=== PATIENT | female | born 1980 | race Hispanic/Latino ===

== ENCOUNTER 2023-07-07 12:26 | Emergency (ER) | payer SELFPAY ==
[2023-07-07 13:16] LABS: Absolute Eosinophils 0.2 K/uL (0-0.5); Absolute Lymphocytes (CBC) 2.7 K/uL (0.7-4.9); Absolute Monocytes 0.5 K/uL (0.1-1.3); Absolute Neutrophil 5.6 K/uL (1.8-8.0); Basophils % 0.6 % (0-1.3); Eosinophils % 2.4 % (0-4.4); Hematocrit 40.7 % (36.0-45.0); Hemoglobin 14.2 g/dL (12.0-15.0); MCHC 34.8 g/dL (32.0-36.0); MCV 86.1 fL (80-100); MPV 9.4 fL (7.6-11.3); Monocytes % 5.2 % (3.3-12.3); Neutrophils % 61.8 % (41.7-73.7); Platelets 197 thou/uL (152-406); RBC Red Blood Cell Count 4.73 M/uL (3.86-4.86); Red Cell Distribution Width 13.6 % (12.1-15.2)
[2023-07-07 13:19] LABS: Specific Gravity 1.005 (1.005-1.030)
[2023-07-07 13:54] LABS: Anion Gap 9.5 mEq/L (5.0-15.0); Potassium 3.5 mEq/L (3.5-5.1)
--- NOTE | 2023-07-07 13:58 | RAD REPORT ---
EXAM DESCRIPTION: US - Transvaginal OB - 07/07/2023 1:41 pm CLINICAL HISTORY: VAGINAL BLEEDING COMPARISON: <Comparisons> FINDINGS: A single gestational sac is present. No definitive yolk sac or pole can be identifie d with confidence. Vague soft tissue structure is present in sac. The maternal adnexa and ovaries are within normal limits. Normal Doppler blood flow was demonstrated to both ovaries. IMPRESSION: Single gestational sac is present in the uterus. No definitive IUP is seen although ther e is mild vague soft tissue present. Recommend serial HCG follow-up as well as repeat pelvic sonogram in 7-10 days.
--- NOTE | 2023-07-07 14:50 | ER ---
Nurse's Notes [facility] Name: Grecia Dc Age: 43 yrs Sex: Female : 1980 Arrival Date: 07/07/2023 Time: 12:26 Bed 7 Private MD: Diagnosis: Threatened Presentation: 07/06 12:43 Chief complaint: Patient states: she is approx 6 weeks with reported LMP ap3 04/24/2023. patient states she started having vaginal bleeding yesterday that increased today. Coronavirus screen: At this time, the client does not indicate any symptoms associated with coronavirus-19. Ebola Screen: No symptoms or risks identified at this time. Initial Sepsis Screen: Does the patient meet any 2 criteria? No. Patient's initial sepsis screen is negative. Does the patient have a suspected source of infection? No. Patient's initial sepsis screen is negative. Risk Assessment: Do you want to hurt yourself or someone else? Patient reports no desire to harm self or others. Onset of symptoms was July 06, 2023. 12:43 Method Of Arrival: Ambulatory ap3 12:43 Acuity: DESHAUN 3 ap3 Triage Assessment: 12:45 General: Appears in no apparent distress. Behavior is calm, cooperative, appropriate ap3 for age. Pain: Denies pain. Neuro: Level of Consciousness is awake, alert, obeys commands. Cardiovascular: Patient's skin is warm and dry. Respiratory: Airway is patent Respiratory effort is even, unlabored, Respiratory pattern is regular, symmetrical. : Reports vaginal bleeding that is light flow. 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 - Social history:: Smoking status: Patient denies any tobacco usage or history of. Screenin:45 [facility] ED Fall Risk Assessment (Adult) History of falling in the last 3 months, bp including since admission No falls in past 3 months (0 pts). Abuse screen: Denies threats or abuse. Denies injuries from another. Nutritional screening: No deficits noted. Tuberculosis screening: No symptoms or risk factors identified. Assessment: 12:45 Obstetrical Assessment: General assessment: awake and alert, skin warm and dry, bp respirations even and unlabored. General: Appears in no apparent distress. comfortable, Behavior is calm, cooperative, appropriate for age. 14:00 Reassessment: Patient appears in no apparent distress at this time. Patient is alert, bp oriented x 3, equal unlabored respirations, skin warm/dry/pink. Vital Signs: 12:43 BP 142 / 76; Pulse 72; Resp 17; Temp 98.3; Pulse Ox 98% ; Weight 76.2 kg; ap3 15:00 BP 109 / 66; Pulse 68; Resp 16; Temp 98; Pulse Ox 99% ; bp ED Course: 12:28 Patient arrived in ED. ra3 12:29 Jeremy Mtz DO is Attending Physician. ms3 12:34 Morgan Dempsey, RN is Primary Nurse. bp 12:45 Triage completed. ap3 12:45 Patient has correct armband on for positive identification. bp 12:46 Arm band placed on right wrist. ap3 12:55 Quantitative Hcg Sent. bp 12:55 Test, Urine Sent. bp 12:55 CBC with Diff Sent. bp 12:55 Basic Metabolic Panel Sent. bp 12:55 Abo/rh Typing Sent. bp 12:55 Inserted saline lock: 22 gauge in right wrist, using aseptic technique. Blood collected.bp 13:43 US Transvaginal Ob In Process Unspecified. EDMS 14:00 Provided Education on: N/A. bp 15:01 No provider procedures requiring assistance completed. IV discontinued, intact, bp bleeding controlled, No redness/swelling at site. Pressure dressing applied. Administered Medications: No medications were administered Medication: 14:00 VIS not applicable for this client. bp Outcome: 14:49 Discharge ordered by . ms3 15:01 Discharged to home ambulatory, with family, bp 15:01 Condition: stable 15:01 Discharge instructions given to patient, family, Instructed on discharge instructions, follow up and referral plans. Demonstrated understanding of instructions, follow-up care, 15:01 Patient left the ED. bp Signatures: Dispatcher [employer] EDMS Morgan Dempsey, RN RN Anne Hernandez RN RN ap3 Jeremy Mtz DO DO ms3 Mireille Springer ra3
--- NOTE | 2023-07-07 14:50 | EDPHYS ---
Physician Documentation [facility] Name: Grecia Dc Age: 43 yrs Sex: Female : 1980 Arrival Date: 07/07/2023 Time: 12:26 Bed 7 Private MD: ED Physician Jeremy Mtz HPI: 07/06 13:18 This 43 yrs old Female presents to ER via Ambulatory with complaints of ms3 Vaginal Bleeding, + Preg <12wks. 13:18 43-year-old female with past medical history of gestational diabetes [place] [facility] [place] vaginal bleeding. Patient was seen yesterday by [facility] obstetrics and was told if her bleeding increase she needs to go to the emergency department. Patient denies going through pads; however, patient states when urinating she is bleeding more. Patient denies abdominal pain at this time. Patient states she has intermittent cramping. Patient states her last menstrual period was April 24, 2023 and she is -0-1-2. 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 - Social history:: Smoking status: Patient denies any tobacco usage or history of. ROS: 13:18 Constitutional: Negative for fever, and chills. Neck: Negative for injury, pain, and ms3 swelling, Cardiovascular: Negative for chest pain, and palpitations. Respiratory: Negative for shortness of breath, cough, wheezing, and pleuritic chest pain, Abdomen/GI: Negative for abdominal pain, nausea, vomiting, diarrhea, and constipation, 13:18 MS/Extremity: Negative for injury and deformity, Skin: Negative for injury, rash, and discoloration, 13:18 : Positive for vaginal bleeding, 13:18 All other systems are negative, Exam: 13:18 Constitutional: This is a well developed, well nourished patient who is awake, alert, ms3 and in no acute distress. Head/Face: Normocephalic, atraumatic. Neck: Trachea midline, no cervical lymphadenopathy. Supple, full range of motion without nuchal rigidity, or vertebral point tenderness. No Meningismus. Chest/axilla: Normal chest wall appearance and motion. Nontender with no deformity. Cardiovascular: Regular rate and rhythm with a normal S1 and S2. No gallops, murmurs, or rubs. Normal PMI, no JVD. No pulse deficits. Respiratory: Lungs have equal breath sounds bilaterally, clear to auscultation and percussion. No rales, rhonchi or wheezes noted. No increased work of breathing, no retractions or nasal flaring. Abdomen/GI: Soft, non-tender, with normal bowel sounds. No distension or tympany. No guarding or rebound. No evidence of tenderness throughout. Skin: Warm, dry with normal turgor. Normal color with no rashes, no lesions, and no evidence of cellulitis. Vital Signs: 12:43 BP 142 / 76; Pulse 72; Resp 17; Temp 98.3; Pulse Ox 98% ; Weight 76.2 kg; ap3 15:00 BP 109 / 66; Pulse 68; Resp 16; Temp 98; Pulse Ox 99% ; bp MDM: 12:41 Patient medically screened. ms3 13:18 Differential diagnosis: threatened Ab, complete Ab, missed Ab, ectopic . ms3 14:49 Data reviewed: vital signs, nurses notes, lab test result(s), radiologic studies, and ms3 as a result, I will discharge patient. Historians other than the Patient: Spouse/Significant Other: Patient's . Counseling: I had a detailed discussion with the patient and/or guardian regarding the historical points, exam findings, and any diagnostic results supporting the discharge/admit diagnosis, lab results, radiology results, the need for outpatient follow up, to return to the emergency department if symptoms worsen or persist or if there are any questions or concerns that arise at home. Special discussion: I discussed with the patient/guardian in detail that at this point there is no indication for admission to the hospital. It is understood, however, that if the symptoms persist or worsen the patient needs to return immediately for re-evaluation. ED course: Discussed labs and ultrasound findings with the patient. Patient to follow-up with [facility] on Monday for repeat beta hCG and ultrasound. All questions were answered. Return precautions discussed include worsening symptoms, or any other concerns. On reevaluation patient is alert and oriented x 4, no apparent distress, nontoxic-appearing, ambulatory in the emergency department, speaking full sentences. 07/06 12:42 Order name: Abo/rh Typing; Complete Time: 14:18 ms3 07/06 12:42 Order name: Basic Metabolic Panel; Complete Time: 14:11 ms3 07/06 12:42 Order name: CBC with Diff; Complete Time: 14:11 ms3 07/06 12:42 Order name: Test, Urine; Complete Time: 13:25 ms3 07/06 12:42 Order name: Quantitative Hcg; Complete Time: 14:11 ms3 07/06 12:42 Order name: US Transvaginal Ob; Complete Time: 14:11 ms3 07/06 12:42 Order name: IV Saline Lock; Complete Time: 12:55 ms3 07/06 12:42 Order name: Labs collected and sent; Complete Time: 12:55 ms3 07/06 12:42 Order name: NPO; Complete Time: 12:47 ms3 Administered Medications: No medications were administered Disposition Summary: 07/07/23 14:49 Discharge Ordered Notes: Location: Home ms3 Condition: Stable ms3 Diagnosis - Threatened ms3 Followup: ms3 - With: Private Physician - When: 2 - 3 days - Reason: Recheck today's complaints Discharge Instructions: - Discharge Summary Sheet ms3 - Threatened Miscarriage ms3 Forms: - Medication Reconciliation Form ms3 - Thank You Letter ms3 - Antibiotic Education ms3 - Prescription Opioid Use ms3 - Patient Portal Instructions ms3 - Leadership Thank You Letter ms3 Signatures: Dispatcher [employer] Anne Valiente RN RN ap3 Jeremy Mtz DO DO ms3
[2023-07-07 15:27] VITALS: BP 109/66; TEMP 98; O2SAT 99
== END 2023-07-07 15:01 | disposition home or self-care (01) ==
LOC: ER 12:26
DX: O20.0 Threatened abortion (principal)
CPT/HCPCS: 36415; 76817; 80048; 81025; 84702; 85025; 86900; 86901; 99284

== ENCOUNTER 2023-07-07 20:21 | Emergency (ER) | payer SELFPAY ==
--- OUTSIDE RECORDS SUMMARY | 2023-07-07 20:25 | XMS REPORT | Continuity of Care Document ---
Author Name Unknown Address [address] [facility] [place] [address] [facility] thconnect Address [address] 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 Name Role Phone Fernanda Andrade Primary Care Physicia n FERNANDA PERRY Attending Clinician Unavail able Fernanda Andrade Attending Clinician + Ultrasound, Ang-Mfm Attending Clinician Unavaila ble Doctor Unassigned, Marcus Attending Clinician U navailable Payers Payer Name Policy Type Policy Number Effective Date Expirati on Date Source [facility] [employer] F[employer] [id number] 2023 00:00:00 Problems Condition Name Condition Details Condition Category Status Onset Date Resolution Date Last Treatment Date Treating Clinician Comments Source UTI in UTI in Disease Active 06-08 00:00: 00 Overview: Formattin g of this note might be different from the original. Pending eliezer [facility] Pregestati onal diabetes mellitus, modified White class B Pregestati onal diabetes mellitus, modified White class B Disease Active 06-07 00:00: 00 [facility] Supervisio n of high-risk of elderly multigravi da Supervisio n of high-risk of elderly multigravi da Disease Active - 00:00: 00 [facility] History of section History of section Disease Active 06-06 00:00: 00 Overview: Formattin g of this note might be different from the original. x2 [facility] History of miscarriag e History of miscarriag e Disease Active 06-06 00:00: 00 [facility] History of gestationa l diabetes History of gestationa l diabetes Disease Active 06-06 00:00: 00 Overview: Formattin g of this note might be different from the original. Was on metformin last [facility] Multiparit y Multiparit y Disease Active 06-06 00:00: 00 [facility] Obesity in Obesity in Disease Active 04-17 00:00: 00 [facility] BMI 28.0-28.9, adult BMI 28.0-28.9, adult Disease Active 04-17 00:00: 00 [facility] Well woman exam (no gynecologi fatou exam) Well woman exam (no gynecologi fatou exam) Disease Active 2015-04 00:00: 00 [facility] Depo-Prove ra contracept arash status Depo-Prove ra contracept arash status Disease Active 2015-04 00:00: 00 [facility] Allergies, Adverse Reactions, Alerts Allergy Name Allergy Type Status Severity Reaction(s) Onset Date Inactive Date Treating Clinician Comments Source NO KNOWN ALLERGIE S Drug Class Active [facility] Social History Social Habit Start Date Stop Date Quantity Comments Source ASSERTION 2023-06-03 00:00:00 [facility] Tobacco use and exposure 2023-06-06 00:00:00 2023-06-06 00:00:00 Smokeless tobacco non-user [facility] Alcohol intake 2023-06-06 00:00:00 2023-06-06 00:00:00 0 /d [facility] History of Social function 2023-06-06 00:00:00 2023-06-06 00:00:00 [facility] Sex Assigned At 1980 00:00:00 1980 00:00:00 [facility] Smoking Status Start Date Stop Date Source Never smoked tobacco [facility] Medications Ordered Medication Name Filled Medication Name Start Date Stop Date Current Medication? Ordering Clinician Indication Dosage Frequency Signature (SIG) Comments Components Source Nitrofurant oin&Nit. Macrocryst (MACROBID) 100 mg capsule 06-08 00:00: 00 06-19 04:59 :00 Yes [id number] 100mg Take 1 capsule by mouth 2 (two) times daily for 10 days. [facility] Nitrofurant oin&Nit. Macrocryst (MACROBID) 100 mg capsule 06-08 00:00: 00 06-19 04:59 :00 Yes [id number] 100mg Take 1 capsule by mouth 2 (two) times daily for 10 days. [facility] Nitrofurant oin&Nit. Macrocryst (MACROBID) 100 mg capsule 06-08 00:00: 00 06-19 04:59 :00 Yes [id number] 100mg Take 1 capsule by mouth 2 (two) times daily for 10 days. [facility] Blood-Gluco se Meter (FREESTYLE LITE METER) Kit 06-07 00:00: 00 Yes [id number] Check blood glucose 4x daily [facility] lancets (FREESTYLE LANCETS) 28 gauge [facility] 06-07 00:00: 00 Yes [id number] Check glucose 4x daily [facility] blood sugar diagnostic (FREESTYLE LITE STRIPS) strip 06-07 00:00: 00 Yes [id number] Check blood glucose 4x daily [facility] Blood-Gluco se Meter (FREESTYLE LITE METER) Kit 06-07 00:00: 00 Yes [id number] Check blood glucose 4x daily [facility] lancets (FREESTYLE LANCETS) 28 gauge Misc 06-07 00:00: 00 Yes [id number] Check glucose 4x daily [facility] blood sugar diagnostic (FREESTYLE LITE STRIPS) strip 06-07 00:00: 00 Yes [id number] Check blood glucose 4x daily [facility] Blood-Gluco se Meter (FREESTYLE LITE METER) Kit 06-07 00:00: 00 Yes [id number] Check blood glucose 4x daily [facility] lancets (FREESTYLE LANCETS) 28 gauge Mis 06-07 00:00: 00 Yes [id number] Check glucose 4x daily [facility] blood sugar diagnostic (FREESTYLE LITE STRIPS) strip 06-07 00:00: 00 Yes [id number] Check blood glucose 4x daily [facility] Blood-Gluco se Meter (FREESTYLE LITE METER) Kit 06-07 00:00: 00 Yes [id number] Check blood glucose 4x daily [facility] lancets (FREESTYLE LANCETS) 28 gauge [facility] 06-07 00:00: 00 Yes [id number] Check glucose 4x daily [facility] blood sugar diagnostic (FREESTYLE LITE STRIPS) strip 06-07 00:00: 00 Yes [id number] Check blood glucose 4x daily [facility] Blood-Gluco se Meter (FREESTYLE LITE METER) Kit 06-07 00:00: 00 Yes [id number] Check blood glucose 4x daily [facility] lancets (FREESTYLE LANCETS) 28 gauge [facility] 06-07 00:00: 00 Yes [id number] Check glucose 4x daily [facility] blood sugar diagnostic (FREESTYLE LITE STRIPS) strip 06-07 00:00: 00 Yes [id number] Check blood glucose 4x daily [facility] Blood-Gluco se Meter (FREESTYLE LITE METER) Kit 06-07 00:00: 00 Yes [id number] Check blood glucose 4x daily [facility] lancets (FREESTYLE LANCETS) 28 gauge [facility] 06-07 00:00: 00 Yes [id number] Check glucose 4x daily [facility] blood sugar diagnostic (FREESTYLE LITE STRIPS) strip 06-07 00:00: 00 Yes [id number] Check blood glucose 4x daily [facility] Blood-Gluco se Meter (FREESTYLE LITE METER) Kit 06-07 00:00: 00 Yes [id number] Check blood glucose 4x daily [facility] lancets (FREESTYLE LANCETS) 28 gauge [facility] 06-07 00:00: 00 Yes [id number] Check glucose 4x daily [facility] blood sugar diagnostic (FREESTYLE LITE STRIPS) strip 06-07 00:00: 00 Yes [id number] Check blood glucose 4x daily [facility] Blood-Gluco se Meter (FREESTYLE LITE METER) Kit 06-07 00:00: 00 Yes [id number] Check blood glucose 4x daily [facility] lancets (FREESTYLE LANCETS) 28 gauge [facility] 06-07 00:00: 00 Yes [id number] Check glucose 4x daily [facility] blood sugar diagnostic (FREESTYLE LITE STRIPS) strip 06-07 00:00: 00 Yes [id number] Check blood glucose 4x daily [facility] Blood-Gluco se Meter (FREESTYLE LITE METER) Kit 06-07 00:00: 00 Yes [id number] Check blood glucose 4x daily [facility] lancets (FREESTYLE LANCETS) 28 gauge [facility] 06-07 00:00: 00 Yes [id number] Check glucose 4x daily [facility] blood sugar diagnostic (FREESTYLE LITE STRIPS) strip 06-07 00:00: 00 Yes [id number] Check blood glucose 4x daily [facility] Blood-Gluco se Meter (FREESTYLE LITE METER) Kit 06-07 00:00: 00 Yes [id number] Check blood glucose 4x daily [facility] lancets (FREESTYLE LANCETS) 28 gauge [facility] 06-07 00:00: 00 Yes [id number] Check glucose 4x daily [facility] blood sugar diagnostic (FREESTYLE LITE STRIPS) strip 06-07 00:00: 00 Yes [id number] Check blood glucose 4x daily [facility] metformin HCl (METFORMIN ORAL) 06-06 13:45: 56 06-06 00:00 :00 No Take by mouth. [facility] flq05-ejyz- folic acid 29 mg iron- 1 mg per tablet 06-06 00:00: 00 Yes [id number] 1{tbl} Take 1 tablet by mouth daily. [facility] wxc87-dczs- folic acid 29 mg iron- 1 mg per tablet 06-06 00:00: 00 Yes [id number] 1{tbl} Take 1 tablet by mouth daily. [facility] lgl69-dvqv- folic acid 29 mg iron- 1 mg per tablet 06-06 00:00: 00 Yes [id number] 1{tbl} Take 1 tablet by mouth daily. [facility] jnw15-daes- folic acid 29 mg iron- 1 mg per tablet 06-06 00:00: 00 Yes [id number] 1{tbl} Take 1 tablet by mouth daily. [facility] rlq45-ywso- folic acid 29 mg iron- 1 mg per tablet 06-06 00:00: 00 Yes [id number] 1{tbl} Take 1 tablet by mouth daily. [facility] bjw58-nwll- folic acid 29 mg iron- 1 mg per tablet 06-06 00:00: 00 Yes [id number] 1{tbl} Take 1 tablet by mouth daily. [facility] wda20-apwr- folic acid 29 mg iron- 1 mg per tablet 06-06 00:00: 00 Yes [id number] 1{tbl} Take 1 tablet by mouth daily. [facility] jpj70-ljbm- folic acid 29 mg iron- 1 mg per tablet 06-06 00:00: 00 Yes [id number] 1{tbl} Take 1 tablet by mouth daily. [facility] rqs61-sbol- folic acid 29 mg iron- 1 mg per tablet 06-06 00:00: 00 Yes [id number] 1{tbl} Take 1 tablet by mouth daily. [facility] dqf55-ldep- folic acid 29 mg iron- 1 mg per tablet 06-06 00:00: 00 Yes [id number] 1{tbl} Take 1 tablet by mouth daily. [facility] klj42-eheu- folic acid 29 mg iron- 1 mg per tablet 06-06 00:00: 00 Yes [id number] 1{tbl} Take 1 tablet by mouth daily. [facility] metformin HCl (METFORMIN ORAL) - 15:05: 54 Yes Take by mouth. [facility] Immunizations Ordered Immunization Name Filled Immunization Name Date Status Comments Source Influenza Virus Vaccine Quad IM 3+ YRS Unknown Completed [facility] PPD (TB) Unknown Completed [facility] TDAP Unknown Completed [facility] TD, NOS Unknown Completed [facility] Influenza Virus Vaccine Quad IM 3+ YRS Unknown Completed [facility] PPD (TB) Unknown Completed [facility] TDAP Unknown Completed [facility] TD, NOS Unknown Completed [facility] Influenza Virus Vaccine Quad IM 3+ YRS Unknown Completed [facility] PPD (TB) Unknown Completed [facility] TDAP Unknown Completed [facility] TD, NOS Unknown Completed [facility] Influenza Virus Vaccine Quad IM 3+ YRS Unknown Completed [facility] PPD (TB) Unknown Completed [facility] TDAP Unknown Completed [facility] TD, NOS Unknown Completed [facility] Influenza Virus Vaccine Quad IM 3+ YRS Unknown Completed [facility] PPD (TB) Unknown Completed [facility] TDAP Unknown Completed [facility] TD, NOS Unknown Completed [facility] TD, NOS Unknown Completed [facility] Influenza Virus Vaccine Quad IM 3+ YRS Unknown Completed [facility] PPD (TB) Unknown Completed [facility] TDAP Unknown Completed [facility] Influenza Virus Vaccine Quad IM 3+ YRS Unknown Completed [facility] PPD (TB) Unknown Completed [facility] TDAP Unknown Completed [facility] TD, NOS Unknown Completed [facility] Influenza Virus Vaccine Quad IM 3+ YRS Unknown Completed [facility] PPD (TB) Unknown Completed [facility] TDAP Unknown Completed [facility] TD, NOS Unknown Completed [facility] Influenza Virus Vaccine Quad IM 3+ YRS Unknown Completed [facility] PPD (TB) Unknown Completed [facility] TDAP Unknown Completed [facility] TD, NOS Unknown Completed [facility] Influenza Virus Vaccine Quad IM 3+ YRS Unknown Completed [facility] PPD (TB) Unknown Completed [facility] TDAP Unknown Completed [facility] TD, NOS Unknown Completed [facility] Influenza Virus Vaccine Quad IM 3+ YRS Unknown Completed [facility] PPD (TB) Unknown Completed [facility] TDAP Unknown Completed [facility] TD, NOS Unknown Completed [facility] Influenza Virus Vaccine Quad IM 3+ YRS Unknown Completed [facility] PPD (TB) Unknown Completed [facility] TDAP Unknown Completed [facility] TD, NOS Unknown Completed [facility] Vital Signs Vital Name Observation Time Observation Value Comments S ource Systolic blood pressure 2023-07-06 20:15:00 140 mm[Hg] [facility] Diastolic blood pressure 2023-07-06 20:15:00 80 mm[Hg] [facility] Heart rate 2023-07-06 20:09:00 77 /min [facility] Body temperature 2023-07-06 20:09:00 36.67 Pratibha [facility] Respiratory rate 2023-07-06 20:09:00 18 /min [facility] Body height 2023-07-06 20:09:00 154.9 cm [facility] Body weight 2023-07-06 20:09:00 75.297 kg [facility] BMI 2023-07-06 20:09:00 31.37 kg/m2 [facility] Systolic blood pressure 2023-07-04 12:47:00 119 mm[Hg] [facility] Diastolic blood pressure 2023-07-04 12:47:00 70 mm[Hg] [facility] Heart rate 2023-07-04 12:47:00 72 /min [facility] Body temperature 2023-07-04 12:47:00 36.33 Pratibha [facility] Respiratory rate 2023-07-04 12:47:00 17 /min [facility] Body height 2023-07-04 12:47:00 154.9 cm [facility] Body weight 2023-07-04 12:47:00 76.295 kg [facility] BMI 2023-07-04 12:47:00 31.78 kg/m2 [facility] Systolic blood pressure 2023-06-06 19:22:00 133 mm[Hg] [place] [facility] Diastolic blood pressure 2023-06-06 19:22:00 81 mm[Hg] [place] [facility] Heart rate 2023-06-06 19:22:00 85 /min [facility] Body temperature 2023-06-06 19:22:00 36.11 Pratibha [facility] Respiratory rate 2023-06-06 19:22:00 17 /min [facility] Body height 2023-06-06 19:22:00 154.9 cm [facility] Body weight 2023-06-06 19:22:00 75.751 kg [facility] BMI 2023-06-06 19:22:00 31.55 kg/m2 [facility] Procedures Procedure Date / Time Performed Performing Clinicia n Source POCT URINALYSIS 2023-07-04 13:27:00 Fernanda Perry [facility] FIRST TRIMESTER ULTRASOUND 2023-07-03 14:40:00 Fernanda Perry [facility] POCT URINALYSIS W/O SPECIFIC GRAVITY 2023-06-06 19:28:00 Fernanda Perry [facility] POCT TEST 2023-06-06 19:27:00 Hardeep Perry [facility] ASSIGNMENT OF BENEFITS 2023-06-06 15:32:13 Docto r Unassigned, Marcus [facility] Encounters Start Date/Time End Date/Time Encounter Type Admission Type Attending [facility] Care Facility Care Department Encounter ID Source 2023-10-09 10:00:00 2023-10-09 10:00:00 Outpatient P [facility] [id number] [facility] 2023-07-18 09:30:00 2023-07-18 09:30:00 Outpatient P [facility] [id number] [facility] 2023-07-10 08:15:00 2023-07-10 08:15:00 Outpatient R FERNANDA PERRY [facility] [id number] [facility] 2023-07-06 15:15:00 2023-07-06 15:59:26 Outpatient R FERNANDA PERRY [facility] [id number] [facility] 2023-07-06 15:15:00 2023-07-06 15:59:26 Routine Visit Fernanda Perry [employer] [employer] [facility] .840.114 350.1.13.10 4.2.7.2.686 [id number] [facility] 2023-07-04 07:45:00 2023-07-04 08:32:30 Outpatient R FERNANDA PERRY [facility] [id number] [facility] 2023-07-04 07:45:00 2023-07-04 08:32:30 Routine Visit Fernanda Perry [facility] [employer] [facility] .840.114 350.1.13.10 4.2.7.2.686 [id number] [facility] 2023-07-03 08:00:00 2023-07-03 08:35:01 [employer] Manager Visit Ultrasound, Ang-Mfm Fernanda Perry [facility] [employer] [facility] .840.114 350.1.13.10 4.2.7.2.686 [id number] [facility] 2023-07-03 08:00:00 2023-07-03 08:35:01 Outpatient P FERNANDA PERRY [facility] [id number] [facility] 2023-06-09 00:00:00 2023-06-09 00:00:00 Telephone Fernanda Perry [facility] [employer] [facility] 1.2.840.114 350.1.13.10 4.2.7.2.686 [id number] [facility] 2023-06-07 00:00:00 2023-06-07 00:00:00 Telephone Fernanda Perry [facility] [employer] [facility] 1.2.840.114 350.1.13.10 4.2.7.2.686 [id number] [facility] 2023-06-07 00:00:00 2023-06-07 00:00:00 Telephone Fernanda Perry [facility] [employer] [facility]ILD [facility] 1.2840.114 350.1.13.10 4.2.7.2.686 [id number] [facility] 2023-06-06 13:45:00 2023-06-06 14:36:55 Outpatient R DYLONSERGEY FERNANDA [facility] [id number] [facility] 2023-06-06 13:45:00 2023-06-06 14:36:55 Initial Visit DylonFernanda albert Brad [facility] [employer] [facility] 1.2840.114 350.1.13.10 4.2.7.2.686 [id number] [facility] 2023-06-06 00:00:00 2023-06-06 00:00:00 Orders Only Doctor Unassigned, Marcus [facility] 1.2840.114 350.1.13.10 4.2.7.2.686 [id number] [facility] Results Test Description Test Time Test Comments Results Result Co mments Source [facility] w/o Specific [id number] 19:28:00* Test Item Value Reference Range Interpretation Comme nts POCT PH U (test code = 3254) 6 mg/dl 5-8 POCT U LEUK EST (test code = 3263) neg Negative - Negative POCT U NIT (test code = 3262) neg Negative - Negati ve POCT U PROT (test code = 3259) neg Negative - Negat arash POCT U GLU (test code = 3256) 250 Negative - Negati ve POCT U KETONE (test code = 3258) neg Negative - Neg ative POCT U BLD (test code = 3257) neg Negative - Negati ve [facility] [id number] 19:27:00* Test Item Value Reference Range Interpretation Comme nts POCT PREG (test code = 1605) Positive On board controls acceptable with C Line (test code = 3574) Yes POCT PREG LOT # (test code = 3575) POCT PREG TEST DATE ( test code = 3576) [facility] Notes Date/Time Note Provider Source 2023-06-12 09:32:29 uIN6EqHOzZjX04p5zPZB EN60MnKilz /GAgAI6O+Duo0jgnjiaTH9Cts8GKIs 9oX22243-50-49R14:32:29Formatt ing of this note might be different from the original.Called patient, notified patient positive for UTI. Educated patient on antibiotics, good perineal hygiene, and increasing fluids. Pt verbalized understanding.LOUISE Mccain RN 06/12/2023 9:32 AM 29300-6Tmjxblbkg encounter RswnKR8919-49-28S81:32:34Telep jenna encounter NoteTXT1.2.840.938189.1.13.104 .2.7.2.928156|[id number] lable for patient bctz34024-6UuenAMHOCXZORZVVvmt atted C-CDA narrative [id number] Hernandez RN[address] LffiQqgbljfvuJicnjwlaaMRRM9744 408430JFWOYNTIPSMOYOJSXDXSPA61 02-07-0309:32:341.2.840.55366 0.1.72.3.15|1.2.840.057704.1.1 3.104.2.7.2.727879_[id number] Louise Mccain RN [facility] 2023-06-09 15:45:58 Y5ydmVWcKeZS5LspjJ2d wTXQ1aDsFK iWM/S40yzqh28Ue3D2uhtbPW9cI897 CvgS5640-85-04P62:45:58Formatt ing of this note might be different from the original.Attempted to call patient, no answer, [place]. [address]-1Ihwyczdli encounter PjumFD0815-19-98Q09:46:16Telep jenna encounter NoteTXT1.2.840.969400.1.13.104 .2.7.2.987549|[id number] lab for patient mxyk87672-8MyorUKZTYXWOGNWBhae atted C-CDA narrative [id number] Garcia [address] NyrhPsykqlhymXiswyvkwzNSVI7329 144883QKMHJGIDHXYKNLTMYXJXSL41 01-07-00T15:46:161.2.840.81805 0.1.72.3.15|1.2.840.483446.1.1 3.104.2.7.2.727879_[id number] Abby Diez LVN [facility] 2023-06-09 15:43:26 GAx9eTmohqh69clVQyCt Xr1/PJMhVB RuIjVUH+VEdMK5tH34jCWeAFqFfPV0 dzpA5817-93-11E43:43:26Formatt ing of this note might be different from the original.Please notify the patient of UTI, meds have been sent to the pharmacy. Please advise the patient on good perineal hygiene, drinking plenty of water, and completing the entire course of treatment.LANDON Powell 06/09/2023 3:43 PM 58623-9Nczineryu encounter PvqgXR2693-49-46S73:44:19Telep jenna encounter NoteTXT1.2.840.953314.1.13.104 .2.7.2.134717|[id number] lable for patient bmzw95307-6LoxsYQLORTGFVUKJuog atted C-CDA narrative [address]TX[address] 428776YGQETPUAYLTKTAIGQUSMIS54 01-07-00T15:44:191.2.840.20097 0.1.72.3.15|1.2.840.887621.1.1 3.104.2.7.2.727879_[id number] [facility] 2023-06-07 16:55:15 vuTGNCqAWfkgv5G+of3n tyZtsIxSnW MvrKmvhd7HPGYLuueFHDwaPSgdiCFu tEeB9568-22-61G80:55:15Formatt ing of this note might be different from the original.Pt called pt, notified of of lab results and POC. Pt does have insurance active will call back when insurance active.Louise Mccain RN 06/07/23 4:56 PM 48078-9Nzqvsjqde encounter NqnkLF6664-83-33M95:58:29Telep jenna encounter NoteTXT1.2.840.340178.1.13.104 .2.7.2.297639|[id number] lable for patient yvwp88314-3WhfwOWRWXQQJRXIUgwn atted C-CDA narrative [id number] [address] [id number] 03-06-27T16:58:291.2.840.68815 0.1.72.3.15|1.2.840.979123.1.1 3.104.2.7.2.727879_[id number] Louise Mccain RN [facility] 2023-06-07 16:54:32 pn9rH6Doyaved71aQkhc lL29MTPOyU ECrc5mspUJ5u/oeJMy9311R9CWIQ7P 2MIQ6717-28-37F56:54:32Formatt ing of this note might be different from the original.Duplicate encounterSsylvia Mccain RN 06/07/23 4:55 PM 39620-4Yeojzyshn encounter KiwzWK2883-26-85E19:55:05Telep jenna encounter NoteTXT1.2.840.658936.1.13.104 .2.7.2.978910|[id number] lable for patient mqny45949-2YmlfMAJIIPPPANLZeec atted C-CDA narrative [id number] Hernandez RN[address] FnkzFyudtqthkVtsxtxbnfEPZF1032 257154NKOGPNHNAEAROUOXHOHWUI47 03-06-27T16:55:051.2.840.97490 0.1.72.3.15|1.2.840.468320.1.1 3.104.2.7.2.727879_[id number] Louise Mccain RN [facility] 2023-06-07 16:51:04 ayOb9jGRAhCOxnNMI0iA j2NFpkBM+8 /fk3WuORq9/sneHB8g4B3KXhOQEyTT K/nQ4638-86-80T68:51:04Formatt ing of this note might be different from the original.Grecia Myrick is a 43 year old femalePt is returning missed call from nurse to discuss lab results via catering associate. Pt connected w/ clinic. 09876-6Meyykuuxv encounter VtdlBG1232-24-39K05:54:16Telep jenna encounter NoteTXT1.2.840.066319.1.13.104 .2.7.2.462268|[id number] lable for patient wqre05275-8JptgQVVMLHRJGYRMdkg atted C-CDA narrative [id number] Freddierandy[address]TXTX[address] 456312LGYEFQXFSVABISHWTYXUWJ46 03-06-27T16:54:161.2.840.58762 0.1.72.3.15|1.2.840.105530.1.1 3.104.2.7.2.727879_[id number] Quoc Gutierrez [facility] 2023-06-07 16:42:10 vbNYRAntnY0FNxXTaQJz fKJwhBwcAT PubwqeyQ2gBqhBLcHaU/u+Hbldu+Dw YXsu1661-81-41H86:42:10Formatt ing of this note might be different from the original.Called pt, spouse answered. States pt not available. Patient to call back.Louise Mccain RN 06/07/23 4:42 PM 40826-3Ngsuupiga encounter GmwdBD0065-87-99T18:42:39Telep jenna encounter NoteTXT1.2.840.762567.1.13.104 .2.7.2.713498|[id number] lable for patient dhir98355-5WzfyTGAFMUSOZOMUfqr atted C-CDA narrative [id number] Hernandez [address] [id number] 03-06-27T16:42:391.2.840.22869 0.1.72.3.15|1.2.840.173566.1.1 3.104.2.7.2.727879_[id number] Louise Mccain RN [facility] 2023-06-07 16:33:39 94eAFjehB7Z2y2WDErvx KAS1CaEJWP GezGLqvMYSgz87IvvVG4ZgwaCvgJzF PMn25509-67-84Q70:33:39Formatt ing of this note might be different from the original.Please notify the patient she failed her 1hrgtt >200mgdl, please have her come for DM education with supplies I have ordered to her pharmacy on file.LANDON Powell 06/07/2023 4:35 PM 29188-2Kjrzebdyt encounter CucgAM3379-44-19E17:36:27Telep jenna encounter NoteTXT1.2.840.647564.1.13.104 .2.7.2.822733|[id number] lable for patient nmst55292-2ZzzaZFAVKTLJIYKIzrd atted C-CDA narrative text[address] JjvxHbnugvyrdTtnsrhutdZJLJ7854 [id number] 03-06-27T16:36:271.2.840.76652 0.1.72.3.15|1.2.840.005656.1.1 3.104.2.7.2.727879_[id number] [facility]"
[2023-07-07 21:28] LABS: Absolute Basophils 0.1 K/uL (0-0.5); Absolute Eosinophils 0.3 K/uL (0-0.5); Absolute Lymphocytes (CBC) 3.1 K/uL (0.7-4.9); Absolute Monocytes 0.5 K/uL (0.1-1.3); Absolute Neutrophil 5.4 K/uL (1.8-8.0); Basophils % 0.6 % (0-1.3); Eosinophils % 2.8 % (0-4.4); Hematocrit 40.2 % (36.0-45.0); Hemoglobin 14.1 g/dL (12.0-15.0); Lymphocytes % 33.6 % (15.3-44.8); MCH 29.8 pg (27.0-35.0); MCV 85.4 fL (80-100); Monocytes % 5.6 % (3.3-12.3); Neutrophils % 57.4 % (41.7-73.7); Nucleated Red Blood Cells % 0.1 % (0-0); Platelets 182 thou/uL (152-406); RBC Red Blood Cell Count 4.71 M/uL (3.86-4.86); Red Cell Distribution Width 13.5 % (12.1-15.2)
[2023-07-07 21:29] LABS: Specific Gravity 1.008 (1.005-1.030); Sqamous Epithelial <5 /HPF (None Seen); Urine Bacteria <20 /HPF (<20); Urine Bilirubin NEGATIVE (Negative); Urine Blood 3+ (OVER) (Negative); Urine Clarity Extremely Turbid (Clear); Urine Color Red (Yellow); Urine Culture Reflex Order NOT NEEDED; Urine Glucose NEGATIVE (Negative); Urine Ketones NEGATIVE (Negative); Urine Microscopic Reflex YN ORDER UMIC; Urine Mucus Slight /HPF (None Seen); Urine Nitrite NEGATIVE (Negative); Urine Protein 3+ (Negative); Urine RBC >50 /HPF (None Seen); Urine Urobilinogen Normal (Normal)
[2023-07-07 21:41] LABS: Specific Gravity 1.008 (1.005-1.030)
[2023-07-07 21:47] LABS: Anion Gap 10.6 mEq/L (5.0-15.0); Potassium 3.6 mEq/L (3.5-5.1)
--- NOTE | 2023-07-07 22:01 | RAD REPORT ---
EXAM DESCRIPTION: US - Transvaginal OB - 07/07/2023 9:54 pm CLINICAL HISTORY: ABD PAIN Pelvic pain COMPARISON: <Comparisons> FINDINGS: Almond abnormally shaped gestational sac is seen in the lower uterine segment. This likely indicates inevitable . Both ovaries obscured by bowel gas. IMPRESSION: Findings are most compatible with inevitable spontaneous .
--- NOTE | 2023-07-07 22:19 | EDPHYS ---
Physician Documentation [facility] Name: Grecia Dc Age: 43 yrs Sex: Female : 1980 Arrival Date: 07/07/2023 Time: 20:21 Bed 14 Private MD: ED Physician Gualberto Traore HPI: 07/06 21:42 This 43 yrs old Female presents to ER via Wheelchair with complaints of kb Abdominal Pain, Vaginal Bleeding, Pt is 6 weeks preg with heavy bleeding and cramping. 21:42 Pt is a 43 year old female who presents for vaginal bleeding and lower abd pain that kb started yesterday. States she was seen at [facility] ER in [place] yesterday, this ER this afternoon and returns for continued bleeding. Denies dizziness and shortness of breath. G4, P2, A1. 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 - Social history:: Smoking status: Patient denies any tobacco usage or history of. Patient/guardian denies using alcohol, street drugs. ROS: 21:41 Constitutional: As per HPI kb Exam: 21:41 Constitutional: This is a well developed, well nourished patient who is awake, alert, kb and in no acute distress. Head/Face: Normocephalic, atraumatic. ENT: Moist Mucous membranes Cardiovascular: Regular rate Respiratory: Respirations even and unlabored. No increased work of breathing. Talking in full sentences Abdomen/GI: Soft, non-tender. No distention Skin: Warm, dry with normal turgor. Normal color. MS/ Extremity: Pulses equal, no cyanosis. Neurovascular intact. Full, normal range of motion. Neuro: Awake and alert, GCS 15, oriented to person, place, time, and situation. Moves all extremities. Normal gait. Vital Signs: 20:52 BP 129 / 73; Pulse 75; Resp 17 S; Temp 98.1(O); Pulse Ox 100% on R/A; Weight 75.3 kg lg3 (R); Height 5 ft. 3 in. (R); Pain 10/10; 23:03 BP 127 / 76; Pulse 73; Resp 16 S; Temp 97.8(O); Pulse Ox 100% on R/A; lg3 20:52 Body Mass Index 29.41 (75.30 kg, 160.02 cm) lg3 20:52 Pain Scale: Adult lg3 MDM: 20:31 Patient medically screened. kb 21:41 Differential diagnosis: threatened Ab, inevitable Ab, complete Ab. Data reviewed: vital kb signs, nurses notes. Historians other than the Patient: Spouse/Significant Other: . 22:16 Counseling: I had a detailed discussion with the patient and/or guardian regarding the kb historical points, exam findings, and any diagnostic results supporting the discharge/admit diagnosis, lab results, radiology results, the need for outpatient follow up, an OB/Gyne specialist, to return to the emergency department if symptoms worsen or persist or if there are any questions or concerns that arise at home. 22:18 ED course: I explained US results and decrease in HCG is indicative of spontaneous kb . Educated on following up with OB next week and on return precautions. . 07/06 20:34 Order name: Abo/rh Typing; Complete Time: 22:44 kb 07/06 20:34 Order name: Basic Metabolic Panel; Complete Time: 22:05 kb 07/06 20:34 Order name: CBC with Diff; Complete Time: 21:29 kb 07/06 20:34 Order name: Test, Urine; Complete Time: 21:43 kb 07/06 20:34 Order name: Quantitative Hcg; Complete Time: 22:05 kb 07/06 20:34 Order name: Urinalysis w/ reflexes; Complete Time: 21:30 kb 07/06 20:34 Order name: US Transvaginal Ob; Complete Time: 22:05 kb 07/06 20:34 Order name: IV Saline Lock; Complete Time: 21:22 kb 07/06 20:34 Order name: Labs collected and sent; Complete Time: 21:22 kb 07/06 20:34 Order name: NPO; Complete Time: 21:22 kb 07/06 20:44 Order name: Pelvic Exam Setup; Complete Time: 21:22 kb Administered Medications: 23:03 Drug: Hydrocodone-Acetaminophen PO (7.5 mg-325 mg) 1 tabs PO once Route: PO; lg3 23:05 Follow up: Response: No adverse reaction; Marked relief of symptoms; RASS: Alert and lg3 Calm (0) Disposition: 07/07 03:34 Co-signature as Attending Physician, Gualberto Traore MD I reviewed the patient's care rt provided by the Advanced Practice Provider and agree with the diagnosis and treatment plan. Disposition Summary: 07/07/23 22:18 Discharge Ordered Notes: Location: Home kb Condition: Stable kb Diagnosis - Complete or unspecified spontaneous without complication kb Followup: kb - With: Emergency Department - When: As needed - Reason: Worsening of condition Followup: kb - With: Private Physician - When: 2 - 3 days - Reason: Recheck today's complaints, Continuance of care, Re-evaluation by your physician Discharge Instructions: - Discharge Summary Sheet kb - Miscarriage, Cbmt-bz-Svwn kb Forms: - Medication Reconciliation Form kb - Thank You Letter kb - Antibiotic Education kb - Prescription Opioid Use kb - Patient Portal Instructions kb - Leadership Thank You Letter kb Signatures: Dispatcher [employer] EDBecca Singletary FNP-C HEMATOLOGY TECHNOLOGIST-Flower Ballard RN RN lg3 Gualberto Traore MD MD rt Corrections: (The following items were deleted from the chart) 07/06 20:34 20:34 ABO/RH TYPING+BB.LAB.BRZ ordered. EDMS EDMS 20:34 20:34 BASIC METABOLIC PANEL+C.LAB.BRZ ordered. EDMS EDMS 20:34 20:34 CBC+H.LAB.BRZ ordered. EDMS EDMS 20:34 20:34 Test, Urine+UC.LAB.BRZ ordered. EDMS EDMS 20:34 20:34 QUANTITATIVE HCG+C.LAB.BRZ ordered. EDMS EDMS 20:34 20:34 Urinalysis+U.LAB.BRZ ordered. EDMS EDMS 21:43 21:42 Pt is a 43 year old female who presents for vaginal bleeding and lower abd pain kb that started yesterday. States she was seen at [facility] ER in [place] yesterday, this ER this afternoon and returns for continued bleeding. Denies dizziness and shortness of breath. kb
--- NOTE | 2023-07-07 22:19 | ER ---
Nurse's Notes [facility] Name: Grecia Dc Age: 43 yrs Sex: Female : 1980 Arrival Date: 07/07/2023 Time: 20:21 Bed 14 Private MD: Diagnosis: Complete or unspecified spontaneous without complication Presentation: 07/06 20:52 Chief complaint: Patient states: spontaneous bleeding beginning yesterday. resolved. lg3 new bleeding beginning this morning. bleeding and pain worsening. abdominal pain 01/17. Coronavirus screen: Client denies travel out of the [place] in the last 14 days. At this time, the client does not indicate any symptoms associated with coronavirus-19. Ebola Screen: No symptoms or risks identified at this time. Initial Sepsis Screen: Does the patient meet any 2 criteria? No. Patient's initial sepsis screen is negative. Does the patient have a suspected source of infection? No. Patient's initial sepsis screen is negative. Risk Assessment: Do you want to hurt yourself or someone else? Patient reports no desire to harm self or others. Onset of symptoms was July 07, 2023. 20:52 Method Of Arrival: Wheelchair lg3 20:52 Acuity: DESHAUN 3 lg3 Triage Assessment: 20:54 General: Appears in no apparent distress. uncomfortable, Behavior is calm, cooperative. lg3 Pain: Complains of pain in pelvis Pain does not radiate. Pain currently is 10 out of 10 on a pain scale. Quality of pain is described as crampy. EENT: No deficits noted. No signs and/or symptoms were reported regarding the EENT system. Neuro: No deficits noted. [place] Agitation-Sedation Scale (RASS): 0 - Alert and Calm Level of Consciousness is awake, alert, obeys commands, Oriented to person, place, time, situation. Cardiovascular: No deficits noted. Denies chest pain, shortness of breath, Capillary refill < 3 seconds Clubbing of nail beds is absent JVD is absent Patient's skin is warm and dry. Respiratory: No deficits noted. Airway is patent Respiratory effort is even, unlabored, Respiratory pattern is regular, symmetrical. GI: Abdomen is round non-distended, Reports lower abdominal pain, cramping. : Reports vaginal bleeding that is bright red, heavy flow. Derm: No deficits noted. No signs and/or symptoms reported regarding the dermatologic system. Skin is intact, is healthy with good turgor, Skin is dry, Skin is normal, Skin temperature is warm. Musculoskeletal: No deficits noted. No signs and/or symptoms reported regarding the musculoskeletal system. Circulation, motion, and sensation intact. Range of motion: intact in all extremities. 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 - Social history:: Smoking status: Patient denies any tobacco usage or history of. Patient/guardian denies using alcohol, street drugs. Screenin:56 [facility] ED Fall Risk Assessment (Adult) History of falling in the last 3 months, lg3 including since admission No falls in past 3 months (0 pts). Abuse screen: Denies threats or abuse. Denies injuries from another. Nutritional screening: No deficits noted. Tuberculosis screening: No symptoms or risk factors identified. Assessment: 20:56 General: see triage assessment. lg3 23:03 Reassessment: Patient appears in no apparent distress at this time. No changes from lg3 previously documented assessment. Patient and/or family updated on plan of care and expected duration. Pain level reassessed. Patient is alert, oriented x 3, equal unlabored respirations, skin warm/dry/pink. 23:05 GI: Bowel sounds present X 4 quads. Abd is soft X 4 quads Abdomen is tender to lg3 palpation in suprapubic area. Vital Signs: 20:52 BP 129 / 73; Pulse 75; Resp 17 S; Temp 98.1(O); Pulse Ox 100% on R/A; Weight 75.3 kg lg3 (R); Height 5 ft. 3 in. (R); Pain 10/10; 23:03 BP 127 / 76; Pulse 73; Resp 16 S; Temp 97.8(O); Pulse Ox 100% on R/A; lg3 20:52 Body Mass Index 29.41 (75.30 kg, 160.02 cm) lg3 20:52 Pain Scale: Adult lg3 ED Course: 20:25 Patient arrived in ED. gm2 20:28 Flower Noel, RN is Primary Nurse. lg3 20:30 Gualberto Traore MD is Attending Physician. rt 20:31 [facility] Abrams [facility]C [facility] kb 20:54 Triage completed. lg3 20:54 Arm band placed on right wrist. lg3 20:56 Patient has correct armband on for positive identification. Placed in gown. Bed in low lg3 position. Call light in reach. Side rails up X 1. Client placed on continuous cardiac and pulse oximetry monitoring. NIBP monitoring applied. monitor car operator on. Door closed. Noise minimized. Warm blanket given. Family accompanied patient. 20:56 Patient maintains SpO2 saturation greater than 95% on room air. lg3 21:20 Initial lab(s) drawn, by me, sent to lab. Urine collected: clean catch specimen, blood lg3 tinged. Inserted saline lock: 22 gauge in right antecubital area, using aseptic technique. Blood collected. 21:22 Abo/rh Typing Sent. lg3 21:22 Basic Metabolic Panel Sent. lg3 21:22 CBC with Diff Sent. lg3 21:22 Test, Urine Sent. lg3 21:22 Quantitative Hcg Sent. lg3 21:22 Urinalysis w/ reflexes Sent. lg3 21:55 US Transvaginal Ob In Process Unspecified. EDMS 23:03 No provider procedures requiring assistance completed. IV discontinued, intact, lg3 bleeding controlled, No redness/swelling at site. Pressure dressing applied. Administered Medications: 23:03 Drug: Hydrocodone-Acetaminophen PO (7.5 mg-325 mg) 1 tabs PO once Route: PO; lg3 23:05 Follow up: Response: No adverse reaction; Marked relief of symptoms; RASS: Alert and lg3 Calm (0) Medication: 23:03 VIS not applicable for this client. lg3 Outcome: 22:18 Discharge ordered by . kb 23:03 Discharged to home ambulatory, with significant other, lg3 23:03 Condition: stable 23:03 Discharge instructions given to patient, significant other, Instructed on discharge instructions, follow up and referral plans. Demonstrated understanding of instructions, follow-up care, 23:05 Patient left the ED. lg3 Signatures: Dispatcher [employer] EDMS Becca Abrams, TRACE PARIKH-Flower Ballard RN RN lg3 Gualberto Traore MD MD rt Tanya Galo gm2
[2023-07-07] MEDS ORDERED: HYDROCODONE/APAP 7.5/325 MG TAB ONE (22:34)
[2023-07-07 23:19] VITALS: BP 127/76; TEMP 97.8; O2SAT 100
== END 2023-07-07 23:05 | disposition home or self-care (01) ==
LOC: ER 20:21
DX: O03.9 Complete or unspecified spontaneous abortion without complication (principal)
CPT/HCPCS: 36415; 76817; 80048; 81001; 81025; 84702; 85025; 86900; 86901; 99285